=== PATIENT | female | born 1960 | race Caucasian/White ===

== ENCOUNTER 2019-01-01 14:40 | Inpatient (IN) | payer MEDICARE, OTHER ==
[~2019-01-01] VITALS: Ht 170.2 cm; Wt 72.6 kg
--- NOTE | 2019-01-01 14:56 | NUR ---
"BIBPA FROM HOME, FOR MEDICAL CLEARANCE, ON A 5150 HOLD DTS." PT TO BED 14, PT ON MONITOR, VSS, NAD NOTED, PENDING MD VERGARA
[2019-01-01 15:23] LABS: APPEARANCE,URINE Clear (CLEAR); BILIRUBIN,URINE Negative (NEGATIVE); BLOOD, URINE Trace-intact Ery/uL (NEGATIVE); COLOR,URINE Yellow (YELLOW); KETONES,URINE 15 (NEGATIVE); LEUKOCYTE ESTERASE ,URINE Trace (NEGATIVE); NITRITE, URINE Negative (NEGATIVE); PROTEIN,URINE Negative (NEGATIVE); UGLUCOSE Negative (NEGATIVE); UROBILINOGEN,URINE 0.2 EU/dL (0.2)
[2019-01-01 15:23] LABS: BASOPHILS % (AUTO) 0.4 % (0.0-2.0); HEMATOCRIT 41 % (33-45); HEMOGLOBIN 13.8 g/dL (11.5-14.8); LYMPHOCYTES # (AUTO) 1.8 /CMM (0.8-4.8); MEAN CORPUSCULAR HGB CONC 34 g/dl (31.0-36.0); MEAN CORPUSCULAR VOLUME 96 fL (82-100); MONOCYTES # (AUTO) 0.7 /CMM (0.1-1.30); MONOCYTES % (AUTO) 8.9 % (2.0-12.0); NEUTROPHILS # (AUTO) 5.4 /CMM (1.8-8.9); NEUTROPHILS % (AUTO) 66.7 % (43.0-81.0); PLATELET COUNT (AUTO) 300 /CMM (150-450); RED BLOOD CELL COUNT(AUTO) 4.26 MIL/uL (4.0-5.2)
[2019-01-01 15:58] LABS: CALCIUM, SERUM 10.1 mg/dL (8.5-10.1); CARBON DIOXIDE 27 mmol/L (21-32); CHLORIDE 103 mmol/L (98-107); GLUCOSE 113 mg/dL (74-106); POTASSIUM 3.5 mmol/L (3.5-5.1); SODIUM SERUM 139 mmol/L (136-145); UREA NITROGEN, BLOOD 16 mg/dL (7-18)
[2019-01-01] MEDS ORDERED: LURA80TA PO (16:08)
[2019-01-01] MEDS ORDERED: LITH300C2 PO (16:08)
[2019-01-01 16:12] LABS: ALANINE AMINOTRANSFERASE 17 U/L (12-78); ALBUMIN 4.6 g/dL (3.4-5.0); ALKALINE PHOSPHATASE 58 U/L (46-116); ASPARTATE AMINOTRANSFERASE 25 U/L (15-37); BILIRUBIN,DIRECT 0.2 mg/dL (0.0-0.2); BILIRUBIN,TOTAL 0.7 mg/dL (0.2-1.0); TOTAL PROTEIN, SERUM 7.8 g/dL (6.4-8.2)
[2019-01-01 16:14] LABS: ACETAMINOPHEN < 2 ug/ml (10-30); ALCOHOL, BLOOD < 3 mg/dL (0-0); SALICYLATE 0.4 mg/dL (2.8-20.0)
[2019-01-01 16:36] LABS: BACTERIA,URINE Few /HPF (None Seen); SQUAMOUS EPITHELIAL CELL,UR Few /HPF (None Seen)
--- NOTE | 2019-01-01 17:44 | NUR ---
REPORT GIVEN TO SEAN OBRIEN FOR ALEKS.
--- NOTE | 2019-01-01 18:30 | NUR ---
GPS/RN-NOTES PATIENT WAS BROUGHT IN BY ER STAFF IN THE UNIT WITH 5150 HOLD STATUS. PATIENT ALERT ORIENTED X3 AMBULATORY STEADY GAIT. CONTRA BAND DONE. ORIENTED PATIENT IN THE UNIT AND UNIT POLICIES. PATIENT LAYING IN BED AT THIS TIME.ENDORSE TO THE CHARGE NURSE FOR THE ADMISSION PROCESS AND CONTINUITY OF CARE.
--- NOTE | 2019-01-01 18:30 | NUR ---
TRANSFERRED TO ROOM 216B, IN STABLE CONDITION.
--- NOTE | 2019-01-01 19:30 | NUR ---
GPS TEXTILE DYER NOTES ADMITTED A 58YO FEMALE FROM HOME ON 5150 HOLD FOR DANGER TO SELF. PER HOLD, PATIENT IS NOT ADHERENT TO HER MEDICATIONS AFTER RECENT MEDICATION CHANGE, INCREASINGLY PARANOID, BELIEVES PEOPLE ARE COMING TO THEIR HOME TO KILL HER AND HER FAMILY, DEMANDING THEY FLEE THEIR HOME. PATIENT WROTE A SUICIDE NOTE SAYING SHE IS WEAK AND CANNOT LIVE ANY LONGER. PATIENT CAME TO THE UNIT ABOUT 1815. UPON FACE TO FACE ASSESSMENT, PATIENT PRESENTS ALERT AND ORIENTED X3, ADMITS TO FEELING DEPRESSED. PATIENT DENIES ANY SUICIDAL IDEATIONS, THOUGHTS OR PLANS THIS TIME. SHE DENIES AUDITORY AND VISUAL HALLUCINATIONS. PATIENT ORIENTED TO STAFF, UNIT POLICIES, AND CARE PLAN. Q15 MIN CHECKS INITIATED. PATIENT AGREED TO CONTRACT FOR SAFETY. SHE WAS FURTHER ENCOURAGED TO VERBALIZE ANY FEELINGS OR CONCERNS, OR ANY THOUGHTS OF SELF HARM AT ANYTIME. SKIN AND BODY ASSESSMENT DONE- PATIENT'S SKIN IS INTACT, NO ACTIVE WOUNDS NOTED THIS TIME. PATIENTS RIGHTS HANDBOOK PROVIDED. GUIDE TO PRESCRIPTION MEDICATIONS HANDBOOK PROVIDED. DR. MAZA IS THE PSYCH DR FOR THIS PATIENT. WILL MONITOR PATIENT FOR MOOD, SAFETY AND BEHAVIOR.
[2019-01-01] MEDS ORDERED: MAGNESIUM HYDROXIDE 30 ML UDC PO PRN (20:00)
[2019-01-01] MEDS ORDERED: ACETAMINOPHEN 325 MG TABLET PO PRN (20:00)
[2019-01-01] MEDS ORDERED: MAG HYDROX/AL HYDROX/SIMETH 30 ML UDC PO PRN (20:00)
[2019-01-01] MEDS ORDERED: BLOOD SUGAR DIAGNOSTIC 1 EACH STRIP IN ONE (20:00)
[2019-01-01 20:41] VITALS: BP 127/76
--- NOTE | 2019-01-01 20:50 | NUR ---
RN NOTES ISRAEL HERNANDEZ MADE A CALL TO VONDA CARRANZA, BROTHER OF THE PATIENT. NO ANSWER. MESSAGE LEFT ON THE PHONE: [phone]
--- NOTE | 2019-01-01 23:00 | NUR ---
RN NOTES FOUND PATIENT STILL AWAKE, SITTING UP IN BED, TALKING TO SELF. OFFERED SLEEPING TABLET 3X BUT PATIENT REFUSED
--- NOTE | 2019-01-02 00:30 | NUR ---
RN NOTES PATIENT FOUND STILL SITTING UP IN BED, AWAKE. OFFERED PATIENT HER SLEEPING TABLET AGAIN BUT SHE REFUSED
--- NOTE | 2019-01-02 02:00 | NUR ---
RN NOTES PATIENT FOUND STILL AWAKE IN BED. OFFERED PATIENT HER SLEEPING TABLET AGAIN BUT STILL, SHE REFUSED
--- NOTE | 2019-01-02 03:30 | NUR ---
RN NOTES PATIENT CAME OUT FROM THE ROOM ASKING FOR HER CLOTHES THEN STARTED PACING IN THE HALLWAY. EXPLAINED TO HER THAT PATIENTS ARE REQUIRED TO WEAR THE HOSPITAL GOWN WHILE STAYING IN THE HOSPITAL. PATIENT VERBALIZED UNDERSTANDING. WENT BACK TO HER ROOM AND STARTED TALKING TO HERSELF
--- NOTE | 2019-01-02 05:50 | NUR ---
RN NOTES PATIENT CAME OUT FROM THE ROOM WITH ONLY HER UNDERWEAR ON. PATIENT ESCORTED BACK TO THE ROOM, REORIENTED AND INFORMED THAT SHE IS NOT ALLOWED TO WALK NAKED IN THE HALLWAY. PER PATIENT," I DIDN'T KNOW WHAT I WAS THINKING. IT WAS A STUPID THING TO DO."
[2019-01-02 07:46] LABS: ALBUMIN 4.8 g/dL (3.4-5.0); BILIRUBIN,TOTAL 1.1 mg/dL (0.2-1.0); CALCIUM, SERUM 10.4 mg/dL (8.5-10.1); TOTAL PROTEIN, SERUM 8.1 g/dL (6.4-8.2)
[2019-01-02 08:00] VITALS: BP 125/70
[2019-01-02 10:21] LABS: CHOLESTEROL 189 mg/dL (<200); HDL CHOLESTEROL 92 mg/dL (40-60); LDL 76 mg/dL (0-99); TRIGLYCERIDES 70 mg/dL (30-150)
[2019-01-02] MEDS: LITHIUM CARBONATE 150 MG CAPSULE PO SCH (10:52)
[2019-01-02] MEDS: risperiDONE 1 MG TABLET PO SCH ×2 (10:52→16:58)
--- NOTE | 2019-01-02 11:37 | NUR ---
Initial discharge plan: Pt currently resides in her home with her mother located at [address] [place] [address] , [place] [address]; [phone]. Per pt, she would like to return to her home. SW will work with the pt and the MD regarding appropriate discharge planning. SW will form a safe and proper discharge.
--- NOTE | 2019-01-02 15:10 | NUR ---
Group note: Pt attended a group session on 01/02/19 at 2:30PM discussing goal setting for while they are in the hospital and for after being discharged. S: Pt stated, My goal is to get well. I just want to feel better. O: Pt was present during the group session and was engaged. Pt appeared to be in a euthymic mood and flat affect. Pt maintained appropriate eye contact and but had difficulty speaking. A: Pt presented with some insight on her admission. Pt also gained awareness of her situation and capacity to set realistic goals to utilize for to remain compliant with her medication. P: Pt will continue milieu treatment and medication stabilization.
[2019-01-02 16:00] VITALS: BP 140/66
[2019-01-02 20:00] VITALS: BP 132/53
[2019-01-02 20:48] VITALS: BP 132/53
[2019-01-02] MEDS: TEMAZEPAM 7.5 MG CAPSULE PO PRN (21:12)
[2019-01-02] MEDS ORDERED: LITHIUM CARBONATE 150 MG CAPSULE PO SCH (22:00)
[2019-01-03 08:00] VITALS: BP 123/80
[2019-01-03] MEDS: LITHIUM CARBONATE 150 MG CAPSULE PO SCH (08:12)
[2019-01-03] MEDS: risperiDONE 1 MG TABLET PO SCH ×2 (08:12→16:12)
[2019-01-03 16:00] VITALS: BP 117/84
--- NOTE | 2019-01-03 18:28 | NUR ---
GPS/RN ENCOURAGE TO EAT AND DRINK THROUGHOUT THE SHIFT. REFUSED TO EAT TODAY. PT DRUNK ONE ORANGE JUICE BOX WITH RAJESH OBRIEN TODAY.
[2019-01-03 20:15] VITALS: BP 120/56
[2019-01-03] MEDS ORDERED: LITHIUM CARBONATE (300 MG CAP) 300 MG CAPSULE ONE (21:42)
--- NOTE | 2019-01-03 22:00 | NUR ---
GPS RN NOTES: PATIENT REFUSED HER SLEEPING MEDICATION RESTORIL. PER PATIENT SHE DOESN'T NEED IT AT THIS TIME. ENCOURAGED PATIENT TO BE IN BED SO SHE COULD SLEEP. PATIENT JUST LOOKS AT NURSE AT SITS ON THE CHAIR. FAA RN ENCOURAGED PATIENT TO HAVE SOME WATER OR JUICE, PATIENT DRINKS A FEW SIPS OF WATER BUT NOT THE JUICE.
[2019-01-03] MEDS: LITHIUM CARBONATE (300 MG CAP) 300 MG CAPSULE PO SCH (22:24)
[2019-01-04 08:00] VITALS: BP 117/83
[2019-01-04] MEDS: risperiDONE 1 MG TABLET PO SCH ×2 (08:43→17:03)
[2019-01-04] MEDS: LITHIUM CARBONATE 150 MG CAPSULE PO SCH (08:43)
[2019-01-04 15:57] VITALS: BP 136/73
[2019-01-04 19:45] VITALS: BP 115/49
[2019-01-04 22:00] VITALS: BP 129/83
--- NOTE | 2019-01-04 23:30 | NUR ---
RN NOTES Pt FOUND AWAKE SITTING IN CHAIR, UNABLE TO SLEEP. ASKED IF Pt NEEDED A SLEEPING PILL TO HELP HER SLEEP, Pt REFUSED A SLEEPING PILL AT THIS TIME. Pt SAID SHE WILL LAY DOWN IN BED AND GET SOME REST.
[2019-01-05 08:00] VITALS: BP 135/58
[2019-01-05] MEDS: LITHIUM CARBONATE 150 MG CAPSULE PO SCH (08:20)
[2019-01-05] MEDS: risperiDONE 1 MG TABLET PO SCH ×2 (08:21→16:27)
--- NOTE | 2019-01-05 12:07 | NUR ---
UR Note: SHAREE called Lianet ([phone]), from [facility], and left a clinical on her voicemail.
[2019-01-05] MEDS ORDERED: OLANZAPINE 10 MG VIAL IM STA (12:28)
[2019-01-05] MEDS ORDERED: LORAZEPAM INJ 2 MG/ML VIAL IM STA (12:28)
--- NOTE | 2019-01-05 15:21 | NUR ---
GROUP NOTE: SW encouraged pt to participate in group on this present day discussing "discharge planning." S: Pt stated, "I wish to return home and not feel so anxious." O: Pt was present during group and appeared anxious, pt maintained minimal eye contact and appeared with a depressed mood and worried affect. Pt only spoke when prompted to. A: Pt presents with some insight and as she stated she wanted to get better before returning home. Pt is compliant with medications and has awareness of the importance of being medication compliant. P: Pt will continue milieu treatment and medication stabilization.
[2019-01-05 16:00] VITALS: BP 108/64
[2019-01-05 20:03] VITALS: BP 127/69
[2019-01-05] MEDS: LITHIUM CARBONATE (300 MG CAP) 300 MG CAPSULE PO SCH (21:12)
--- NOTE | 2019-01-05 21:15 | NUR ---
GPS NOTES OFFERED PATIENT SOME SNACKS OR SANDWICH DUE TO POOR ORAL INTAKE THROUGHOUT THE DAY, BUT PATIENT REFUSED. OFFERED JUICES WITH MED INTAKE, PATIENT AGREED TO DRINK ORANGE JUICE.
[2019-01-05] MEDS: TEMAZEPAM 7.5 MG CAPSULE PO PRN (22:23)
[2019-01-06 08:00] VITALS: BP 129/79
--- NOTE | 2019-01-06 08:26 | NUR ---
UR Note: SW received a voicemail from Lianet ([phone]), from [facility], as a response to the clinical the SW had left on her voicemail. She stated that she is requesting a lithium level on the pt and then will state whether or not the pt will receive additional authorization.
[2019-01-06] MEDS: LITHIUM CARBONATE 150 MG CAPSULE PO SCH (09:32)
[2019-01-06] MEDS: risperiDONE 1 MG TABLET PO SCH ×2 (09:32→17:04)
--- NOTE | 2019-01-06 14:00 | NUR ---
QUIET ALL DAY,KEEPS TO SELF,PACING THE HALLS.
--- NOTE | 2019-01-06 14:46 | NUR ---
UR Note: SHAREE called Lianet ([phone]), from [facility], and left a voicemail with the pts lithium level of 1.15. SHAREE is waiting to hear back to determine whether the pt will be discharged today or not.
--- NOTE | 2019-01-06 15:05 | NUR ---
GROUP NOTE: SW encouraged pt to participate in group on this present day discussing "appropriate coping skills." Pt was anxious and pacing around in her room with depressed mood. Pt stated that she just wanted to leave and that she only felt safe in her room. SW provided clinical intervention and discussed pts anxiety/depression and healthy coping skills, pt stated that she did not know how to cope with her feelings and SW provided positive reinforcement and highlighted pts strengths, such as verbalization of her feelings.
--- NOTE | 2019-01-06 15:05 | NUR ---
UR Note: SHAREE called Lianet ([phone]), from [facility], who stated that the pt will be authorized from 01/06-01/07 with a review due on 01/07/19.
--- NOTE | 2019-01-06 15:10 | NUR ---
Family Contact: SHAREE called the pts brother, Hugo ([phone]), and informed him that the pt is authorized to be in the hospital up until 01/07 as of right now and has a tentative discharge date for 01/08/19.
[2019-01-06 16:00] VITALS: BP 122/97
[2019-01-06 20:17] VITALS: BP 149/90
[2019-01-06] MEDS: LITHIUM CARBONATE (300 MG CAP) 300 MG CAPSULE PO SCH (21:25)
--- NOTE | 2019-01-07 01:23 | NUR ---
PT OFFERED SLEEPING MEDS THREE TIMES BUT REFUSED. LAST SLEEPING PILL OFFERED TO PT AT 2AM.
[2019-01-07 07:00] LABS: BASOPHILS % (AUTO) 0.5 % (0.0-2.0); EOSINOPHILS % (AUTO) 2.5 % (0.0-6.0); HEMATOCRIT 39 % (33-45); LYMPHOCYTES # (AUTO) 1.5 /CMM (0.8-4.8); LYMPHOCYTES % (AUTO) 27.5 % (20.0-44.0); MEAN CORPUSCULAR HGB CONC 34 g/dl (31.0-36.0); MEAN CORPUSCULAR VOLUME 95 fL (82-100); MONOCYTES # (AUTO) 0.5 /CMM (0.1-1.30); MONOCYTES % (AUTO) 9.5 % (2.0-12.0); NEUTROPHILS # (AUTO) 3.4 /CMM (1.8-8.9); PLATELET COUNT (AUTO) 255 /CMM (150-450); RED BLOOD CELL COUNT(AUTO) 4.07 MIL/uL (4.0-5.2); WHITE BLOOD COUNT (AUTO) 5.6 K/uL (4.3-11.0)
[2019-01-07 07:23] LABS: CALCIUM, SERUM 10.2 mg/dL (8.5-10.1); CREATININE 0.8 mg/dL (0.6-1.3); MAGNESIUM 2.3 mg/dL (1.8-2.4); PHOSPHORUS 2.9 mg/dL (2.5-4.9); POTASSIUM 3.5 mmol/L (3.5-5.1)
[2019-01-07 08:00] VITALS: BP 136/88
[2019-01-07] MEDS: risperiDONE 1 MG TABLET PO SCH ×2 (08:18→17:18)
[2019-01-07] MEDS: LITHIUM CARBONATE 150 MG CAPSULE PO SCH (08:18)
[2019-01-07] MEDS ORDERED: ENSURE ENLIVE 237 ML LIQUID (VANILLA) PO SCH (11:30)
[2019-01-07] MEDS: ENSURE ENLIVE 237 ML LIQUID (VANILLA) PO SCH ×2 (12:11→17:20)
--- NOTE | 2019-01-07 15:00 | NUR ---
Family Contact: SW called the pts brother, Hugo ([phone]), and left a voicemail that stated that the pt will be discharged tomorrow and would like a call back regarding what time she will be picked up.
--- NOTE | 2019-01-07 15:01 | NUR ---
UR Note: SHAREE called Lianet ([phone]), from [facility], and informed her that the pt will be discharged tomorrow.
--- NOTE | 2019-01-07 15:23 | NUR ---
Group note: Pt attended a group session on 01/07/19 at 2:00PM discussing discharge planning. S: Pt stated, I am going to go back home tomorrow with my brother and I know that I have to keep taking my medications. I know that my SW stated that I have to follow up with my psychiatrist and medical doctors as well. O: Pt was present during the group session and was engaged. Pt appeared to be in a euthymic mood and flat affect. Pt maintained appropriate eye contact. A: Pt also gained awareness of her situation and capacity to set realistic goals to utilize for to remain compliant with her medication. P: Pt will continue milieu treatment and medication stabilization.
[2019-01-07 16:00] VITALS: BP 103/75
[2019-01-07 20:00] VITALS: BP 119/81
[2019-01-07 20:10] VITALS: BP 119/81
[2019-01-07] MEDS: LITHIUM CARBONATE (300 MG CAP) 300 MG CAPSULE PO SCH (21:21)
[2019-01-08 08:00] VITALS: BP 95/62
[2019-01-08] MEDS: risperiDONE 1 MG TABLET PO SCH (09:11)
[2019-01-08] MEDS: ENSURE ENLIVE 237 ML LIQUID (VANILLA) PO SCH ×2 (09:11→12:29)
[2019-01-08] MEDS: LITHIUM CARBONATE 150 MG CAPSULE PO SCH (09:11)
--- NOTE | 2019-01-08 09:16 | NUR ---
DR. MAZA GAVE AND ORDER TO D/C HOLD AND D/C HOME AND TO FOLLOW UP WITH PSYCH AND MEDICAL DOCTORS.
--- NOTE | 2019-01-08 09:41 | NUR ---
UR Note: SW received a voicemail from Lianet ([phone]), from [facility], stating that yesterday was the last covered day for the pt and that her authorization number is [id number].
--- NOTE | 2019-01-08 09:51 | NUR ---
UR Note: SHAREE called Lianet ([phone]), from [facility], and left a voicemail stating that the pt is going to be discharged today.
--- NOTE | 2019-01-08 14:32 | NUR ---
Family Contact: SW called the pts brother, Hugo ([phone]), and he stated that he will come picking machine operator helper the pt around 4pm.
--- NOTE | 2019-01-08 15:15 | NUR ---
Group Note: SW encouraged pt to participate in group on 01/08/19 at 2pm discussing "social supports." Pt stated that she does not want to participate because she was feeling anxious about her discharge and stated that her brother will be picking her up.
--- NOTE | 2019-01-08 15:23 | NUR ---
Discharge Note: Pt was discharged home to [id number] [place] [address] , [place] [address]; ([phone]). Pts brother, Hugo ([phone]), picked the pt up around 4pm. Upon discharge, the pt appeared to be in a dysphoric mood and presented with an anxious affect. Pt denied both suicidal and homicidal ideation as well as auditory and visual hallucinations. Pt will be under the care of her psychiatrist, Dr. Leos ([facility]), [place] [address] [place] [address]; ; and a fax of records was sent to: [phone]. Pt has an appointment on 01/14/19 at 10AM. Pt will be under the care of his die tripper, Dr. Degroot, located at [id number] [place] [address] [address], [place] [address]; .
--- NOTE | 2019-01-08 16:25 | NUR ---
GPS/RN-NOTES PATIENT DISCHARGE TO HOME WITH HER BROTHER TODAY. AND DR. PERALES AWARE AND AGREED OF PATIENT DISCHARGE WITH ORDERS. PATIENT DID NOT VERBALIZE SI/HI,DENIES VISUAL/AUDITORY HALLUCINATIONS AT THE TIME OF DISCHARGE.ALL DISCHARGE MEDICATIONS WAS REVIEWED WITH THE PATIENT WITH UNDERSTANDING RX WAS GIVEN TO HER AND WAS ENDORSED TO HER BROTHER VONDA,ALL DISCHARGED PAPERS WAS SIGN BY THE PATIENT . INSTRUCTED PATIENT TO FOLLOW UP WITH PRIMARY PHYSICIAN IN A WEEK OR CALL 911 OR GO TO THE NEAREST EMERGENCY ROOM IN CASE OF EMERGENCIES.PATIENT LEFT THE UNIT IN STABLE CONDITION ALERT ORIENTED X3 AMBULATORY WITH STEADY GAIT. DECK SPECIALIST WAS ASSISTED PATIENT IN THE LOBBY FOR SAFETY. DECORATING INSTRUCTOR BY BROTHER VONDA CARRANZA VIA PRIVATE CAR.
== END 2019-01-08 16:25 | disposition home or self-care (01) | DRG 885 ==
LOC: ER 14:44 → GPS 17:44
PROVIDERS: ADMIT Psychiatry & Neurology Psychiatry; ATTEND Hospitalist
DX: F25.9 Schizoaffective disorder, unspecified (principal); R45.851 Suicidal ideations; F29 Unspecified psychosis not due to a substance or known physiological condition; F41.9 Anxiety disorder, unspecified; Z73.6 Limitation of activities due to disability
CPT/HCPCS: 36415; 80048-TC; 80053-TC; 80061-TC; 80076-TC; 80305; 81000-TC; 82962-TC; 83735-TC; 84100-TC; 84703-TC; 85025-TC; 87081-TC; G0480

== ENCOUNTER 2019-01-12 16:07 | Inpatient (IN) | payer OTHER ==
[~2019-01-12] VITALS: Ht 167.6 cm; Wt 56.7 kg
--- NOTE | 2019-01-12 16:19 | NUR ---
LOI from home, per EMS brother said, she was released too soon from mental health. On room air, breathing evenly and unlabored. connected to the monitor and pulse ox. Will continue to monitor accordingly.
--- NOTE | 2019-01-12 16:21 | NUR ---
urine collected and sent to lab.
[2019-01-12 16:31] LABS: APPEARANCE,URINE Slightly Cloudy (CLEAR); BILIRUBIN,URINE MODERATE (NEGATIVE); BLOOD, URINE Small Ery/uL (NEGATIVE); COLOR,URINE Dark (YELLOW); KETONES,URINE Trace (NEGATIVE); LEUKOCYTE ESTERASE ,URINE Negative (NEGATIVE); NITRITE, URINE Negative (NEGATIVE); PH,URINE 6.5 (5.0-8.0); PROTEIN,URINE 30 mg/dl (NEGATIVE); UGLUCOSE Negative (NEGATIVE)
[2019-01-12 16:38] LABS: BASOPHILS % (AUTO) 0.1 % (0.0-2.0); HEMATOCRIT 39 % (33-45); HEMOGLOBIN 12.9 g/dL (11.5-14.8); LYMPHOCYTES # (AUTO) 0.4 /CMM (0.8-4.8); LYMPHOCYTES % (AUTO) 3.2 % (20.0-44.0); MEAN CORPUSCULAR HGB CONC 34 g/dl (31.0-36.0); MEAN CORPUSCULAR VOLUME 96 fL (82-100); MONOCYTES # (AUTO) 1.1 /CMM (0.1-1.30); MONOCYTES % (AUTO) 8.1 % (2.0-12.0); NEUTROPHILS % (AUTO) 88.6 % (43.0-81.0); PLATELET COUNT (AUTO) 278 /CMM (150-450); RED BLOOD CELL COUNT(AUTO) 4.03 MIL/uL (4.0-5.2); WHITE BLOOD COUNT (AUTO) 13.6 K/uL (4.3-11.0)
[2019-01-12 17:01] LABS: SQUAMOUS EPITHELIAL CELL,UR Moderate /HPF (None Seen)
[2019-01-12 17:02] LABS: BACTERIA,URINE Moderate /HPF (None Seen)
[2019-01-12 17:03] LABS: WBC,URINE 0-2 /HPF (0-3); YEAST,URINE Rare /HPF (None Seen)
[2019-01-12 17:12] LABS: ACETAMINOPHEN 0 ug/ml (10-30); ALANINE AMINOTRANSFERASE 51 U/L (12-78); ALBUMIN 4.1 g/dL (3.4-5.0); ALCOHOL, BLOOD < 3 mg/dL (0-0); ALKALINE PHOSPHATASE 64 U/L (46-116); ASPARTATE AMINOTRANSFERASE 96 U/L (15-37); BILIRUBIN,DIRECT 0.2 mg/dL (0.0-0.2); BILIRUBIN,TOTAL 0.8 mg/dL (0.2-1.0); CALCIUM, SERUM 10.4 mg/dL (8.5-10.1); CARBON DIOXIDE 26 mmol/L (21-32); CHLORIDE 103 mmol/L (98-107); CREATININE 1.1 mg/dL (0.6-1.3); GLUCOSE 113 mg/dL (74-106); POTASSIUM 3.8 mmol/L (3.5-5.1); SALICYLATE 0.5 mg/dL (2.8-20.0); SODIUM SERUM 137 mmol/L (136-145); UREA NITROGEN, BLOOD 30 mg/dL (7-18)
--- NOTE | 2019-01-12 17:21 | NUR ---
CALLED SUSU BEAVER 1HR.
[2019-01-12] MEDS ORDERED: IV NS 0.9% 1,000 ML BAG IV ONE (18:00)
--- NOTE | 2019-01-12 18:19 | NUR ---
pinky BACKBREAKER at bedside for eval.
[2019-01-12] MEDS ORDERED: RISP0.253 PO (19:05)
[2019-01-12] MEDS ORDERED: LITH300T PO (19:05)
[2019-01-12] MEDS ORDERED: LITH600C PO (19:05)
--- NOTE | 2019-01-12 20:37 | NUR ---
REPORT GIVEN TO MARY OBRIEN FOR ALEKS
[2019-01-12 21:00] VITALS: BP 138/76
[2019-01-12] MEDS ORDERED: MAGNESIUM HYDROXIDE 30 ML UDC PO PRN (21:30)
[2019-01-12] MEDS ORDERED: ACETAMINOPHEN 325 MG TABLET PO PRN (21:30)
[2019-01-12] MEDS ORDERED: BLOOD SUGAR DIAGNOSTIC 1 EACH STRIP IN ONE (21:30)
[2019-01-12] MEDS ORDERED: MAG HYDROX/AL HYDROX/SIMETH 30 ML UDC PO PRN (21:30)
[2019-01-12] MEDS ORDERED: LURA40TA PO (23:18)
--- NOTE | 2019-01-13 02:48 | NUR ---
GPS RN NOTES Admitted directly a 58 yo female from home via gurney on 5150 Hold for DTS/GD. Per Hold Pt is brought in from home d/t increased bizarre and erratic behavior. Per Pt brother, Pt has been deteriorating over the past 4 days and have not been eating or drinking. Pt spends all day bending over in the living room and sleeps a few hours at night, staring at the window for hours. Upon face to face assessment Pt presents as alert and oriented x2, disheveled, depressed, anxious, and disoriented. Pt talks minimally and shows disinterest at staff, and refused to sign admission papers due to confusion. Pt belongings and contraband were checked and placed in locked cabinet. Pt advised of her Hold. Pt rights discussed and Pt handbook provided. Guide to prescription medications given. Pt will be under the care of Dr Parra Psychiatrist, and Dr Holland Internal Medicine. Pt oriented to unit, staff, care plan and unit policies. At 2109 Dr Narayanan Internal Medicine was notified of Pt admission and medication reconciliation done at 2119. Q 15 minutes check initiated. Care plan started. Accu check done/ BS 88. Denies SI, HI at this time. No signs and symptoms of distress at this time. Pt lying in bed, bed in low and locked position. Call morillo within reach, 2 side rails up for fall prevention, bed alarms on. Will continue to monitor Pt for mood, safety and behavior. Will endorse Pt to oncoming day shift nurse.
[2019-01-13 07:04] LABS: BASOPHILS % (AUTO) 0.2 % (0.0-2.0); EOSINOPHILS % (AUTO) 0.6 % (0.0-6.0); HEMATOCRIT 38 % (33-45); HEMOGLOBIN 12.7 g/dL (11.5-14.8); LYMPHOCYTES # (AUTO) 1.2 /CMM (0.8-4.8); MEAN CORPUSCULAR HGB CONC 34 g/dl (31.0-36.0); MEAN CORPUSCULAR VOLUME 95 fL (82-100); MONOCYTES # (AUTO) 1.2 /CMM (0.1-1.30); MONOCYTES % (AUTO) 12.4 % (2.0-12.0); NEUTROPHILS # (AUTO) 7.5 /CMM (1.8-8.9); NEUTROPHILS % (AUTO) 74.8 % (43.0-81.0); PLATELET COUNT (AUTO) 250 /CMM (150-450); RED BLOOD CELL COUNT(AUTO) 3.96 MIL/uL (4.0-5.2)
[2019-01-13 07:29] LABS: ALBUMIN 3.3 g/dL (3.4-5.0); BILIRUBIN,TOTAL 0.7 mg/dL (0.2-1.0); CALCIUM, SERUM 10.1 mg/dL (8.5-10.1); CREATININE 0.9 mg/dL (0.6-1.3); MAGNESIUM 2.6 mg/dL (1.8-2.4); PHOSPHORUS 3.2 mg/dL (2.5-4.9); POTASSIUM 3.6 mmol/L (3.5-5.1); TOTAL PROTEIN, SERUM 6.2 g/dL (6.4-8.2)
[2019-01-13 07:30] LABS: THYROID STIMULATING HORMONE 3.716 uIU/mL (0.358-3.74)
[2019-01-13 07:54] LABS: CHOLESTEROL 137 mg/dL (<200); HDL CHOLESTEROL 62 mg/dL (40-60); LDL 57 mg/dL (0-99); TRIGLYCERIDES 74 mg/dL (30-150)
[2019-01-13 08:00] VITALS: BP 108/67
[2019-01-13] MEDS ORDERED: FLUCONAZOLE (100 MG) 100 MG TABLET PO ONE (09:00)
--- NOTE | 2019-01-13 10:39 | NUR ---
UR Note: Lul Jorge Luis ([phone]), Cutting Machine Fixer, called the SW and stated that a review will be due 01/16/19. software quality manager is requesting a lithium level at this time. Addendum: 01/13/19 at 1042 by VAMSHI TOLLIVER SHAREE conducted a live clinical review at this time.
[2019-01-13] MEDS: risperiDONE 1 MG TABLET PO SCH ×2 (10:52→17:13)
[2019-01-13] MEDS: LITHIUM CARBONATE (300 MG CAP) 300 MG CAPSULE PO SCH ×2 (10:52→21:49)
--- NOTE | 2019-01-13 11:20 | NUR ---
Family Contact: SW called pts brotherHugo ([phone]), and left a voicemail stating that the SW would like to discuss the discharge plan.
--- NOTE | 2019-01-13 11:46 | NUR ---
Initial Discharge Plan: Pt currently resides at home with her brother and mother located at [address] [place] [address]; ([phone]). Per pt, she would like to return to her home. SW will work with the pt and the MD regarding appropriate discharge planning. SW will form a safe and proper plan.
--- NOTE | 2019-01-13 15:55 | NUR ---
GROUP NOTE: SW encouraged pt to participate in group on this present day discussing "impaired reality-testing" Pt unable to participate due to confusion, bizarre unrealistic statements, isolative with depressed mood. SW attempted to provide intervention but pt did not engage in conversation.
[2019-01-13 16:00] VITALS: BP 128/61
[2019-01-13 20:00] VITALS: BP 147/55
[2019-01-13 20:37] VITALS: BP 147/55
[2019-01-14 08:00] VITALS: BP 130/69
[2019-01-14] MEDS: LITHIUM CARBONATE (300 MG CAP) 300 MG CAPSULE PO SCH ×2 (08:09→22:20)
[2019-01-14] MEDS: risperiDONE 1 MG TABLET PO SCH ×2 (08:09→16:02)
[2019-01-14] MEDS: ENSURE ENLIVE 237 ML LIQUID (VANILLA) PO SCH ×3 (08:10→16:02)
--- NOTE | 2019-01-14 14:50 | NUR ---
Group Note: SW encouraged pt to participate in group on 01/14/19 at 2pm discussing social supports. Pt stated that she lives with her mother and brother and they help her when she is at home. Pt stated that she was feeling depressed and wanted to remain in her room staring at the fritz.
--- NOTE | 2019-01-14 15:28 | NUR ---
Family Contact: SHAREE called pts brother, Hugo ([phone]), and informed him of the pts treatment plan and initial discharge plan. He stated that he believes that the pt needs to be hospitalized longer than just a few days and agreed that the pt could benefit from psychotherapy.
[2019-01-14 16:00] VITALS: BP 112/77
[2019-01-14 20:18] VITALS: BP 127/69
[2019-01-15 08:00] VITALS: BP 118/59
[2019-01-15] MEDS: LITHIUM CARBONATE (300 MG CAP) 300 MG CAPSULE PO SCH ×2 (08:06→21:46)
[2019-01-15] MEDS: risperiDONE 1 MG TABLET PO SCH ×2 (08:06→16:53)
[2019-01-15] MEDS: ENSURE ENLIVE 237 ML LIQUID (VANILLA) PO SCH ×3 (08:06→16:53)
[2019-01-15 16:00] VITALS: BP 124/94
[2019-01-15 20:00] VITALS: BP 119/84
[2019-01-16] MEDS: ENSURE ENLIVE 237 ML LIQUID (VANILLA) PO SCH ×3 (08:13→17:12)
[2019-01-16] MEDS: risperiDONE 1 MG TABLET PO SCH ×2 (08:14→17:00)
[2019-01-16] MEDS: LITHIUM CARBONATE (300 MG CAP) 300 MG CAPSULE PO SCH (08:14)
--- NOTE | 2019-01-16 11:16 | NUR ---
UR Note: SHAREE called Lianet ([phone]), vocational case manager with [employer], and conducted a clinical on her voicemail requesting additional days of authorization.
--- NOTE | 2019-01-16 13:26 | NUR ---
UR Note: Lianet ([phone]), protective services case worker with [employer], called the SW and requested more information for the clinical. She stated that she will call the SW back once she meets with her doctor and they make a decision regarding authorization.
--- NOTE | 2019-01-16 15:07 | NUR ---
RN NOTE- CRITICAL LITHIUM LEVEL 2.26. DR HSU INFORMED. STAT LITHIUM LEVEL RECHECK ORDERED. LAB NOTIFIED. DR SALINAS NOTIFIED AT [facility]. NO NEW ORDERS AT PRESENT. AWAITING RECHECK OF LITHIUM LEVEL. PT SLIGHTLY SOMNOLENT, AMBULATORY AND DENIES N&V. CONTINUING TO MONITOR.
--- NOTE | 2019-01-16 15:50 | NUR ---
UR Note: Lianet ([phone]), wrapper caser with [employer], called the SW and stated that the pt received authorization over the weekend. She stated that the pt will require a clinical on Saturday.
[2019-01-16 16:00] VITALS: BP 112/73
--- NOTE | 2019-01-16 17:31 | NUR ---
MICAH NOTE- RECHECK LITHIUM LEVEL 1.7. DR HSU NOTIFIED. ORDERS - HOLD LITHIUM TONIGHT AND TOMORROW. RECHECK LITHIUM LEVEL 6 AM TOMORROW JANUARY 17. MONITOR PT. NOTIFY DR SALINAS [facility]. Addendum: 01/16/19 at 1804 by [address]NE OLMOS RN [address] SALINAS NOTIFIED OF RECHECK LEVEL LITHIUM. NO NEW ORDERS. MONITOR PT AND COMPLY W DR HSU ORDERS. Addendum: 01/16/19 at 1843 by CAROLYNE OLMOS RN MICAH RICHARD- AMADOR SALINAS VISITED PT. NEW ORDERS GIVEN
[2019-01-16 19:28] LABS: BASOPHILS % (AUTO) 0.2 % (0.0-2.0); EOSINOPHILS % (AUTO) 0.1 % (0.0-6.0); HEMATOCRIT 43 % (33-45); HEMOGLOBIN 14.1 g/dL (11.5-14.8); LYMPHOCYTES # (AUTO) 1.4 /CMM (0.8-4.8); LYMPHOCYTES % (AUTO) 8.5 % (20.0-44.0); MEAN CORPUSCULAR HGB CONC 33 g/dl (31.0-36.0); MEAN CORPUSCULAR VOLUME 97 fL (82-100); MONOCYTES # (AUTO) 1.6 /CMM (0.1-1.30); MONOCYTES % (AUTO) 9.8 % (2.0-12.0); NEUTROPHILS % (AUTO) 81.4 % (43.0-81.0); PLATELET COUNT (AUTO) 362 /CMM (150-450); RED BLOOD CELL COUNT(AUTO) 4.44 MIL/uL (4.0-5.2)
[2019-01-16 19:53] LABS: CALCIUM, SERUM 10.9 mg/dL (8.5-10.1); CARBON DIOXIDE 25 mmol/L (21-32); CHLORIDE 111 mmol/L (98-107); CREATININE 1.3 mg/dL (0.6-1.3); GLUCOSE 117 mg/dL (74-106); POTASSIUM 4.2 mmol/L (3.5-5.1); SODIUM SERUM 147 mmol/L (136-145); UREA NITROGEN, BLOOD 29 mg/dL (7-18)
[2019-01-16 19:55] LABS: ACETAMINOPHEN < 10 ug/ml (10-30); SALICYLATE 0.8 mg/dL (2.8-20.0)
[2019-01-16 20:00] VITALS: BP 120/80
[2019-01-16 20:28] VITALS: BP 120/80
[2019-01-16] MEDS: BLOOD SUGAR DIAGNOSTIC 1 EACH STRIP IN SCH (21:06)
[2019-01-16] MEDS: TEMAZEPAM 7.5 MG CAPSULE PO PRN (21:07)
[2019-01-17] MEDS: BLOOD SUGAR DIAGNOSTIC 1 EACH STRIP IN SCH (07:36)
[2019-01-17 08:00] VITALS: BP 119/56
[2019-01-17] MEDS: risperiDONE 1 MG TABLET PO SCH ×2 (08:25→16:34)
[2019-01-17] MEDS: ENSURE ENLIVE 237 ML LIQUID (VANILLA) PO SCH ×3 (08:25→16:33)
[2019-01-17] MEDS ORDERED: IV NS 0.9% 1,000 ML IV STA (10:11)
--- NOTE | 2019-01-17 10:28 | NUR ---
AMADOR SALINAS ORDERED LEYDA DURAN AT THIS TIME
--- NOTE | 2019-01-17 10:57 | NUR ---
RN NOTE- IV STARTED PER ORDERS. 24 G LT HAND, ONE ATTEMPT. IV BOLUS NS 1000ML . TOLERATING WELL. RN MONITORING PT AT BEDSIDE THROUGH INFUSION. Addendum: 01/17/19 at 1246 by CAROLYNE OLMOS RN 950 ML IV BOLUS NS INFUSED. 24 G D/C AT THIS TIME. TOLERATED WELL.
[2019-01-17 16:00] VITALS: BP 121/97
[2019-01-17 17:07] LABS: APPEARANCE,URINE CLEAR (CLEAR); BILIRUBIN,URINE NEGATIVE (NEGATIVE); BLOOD, URINE NEGATIVE Ery/uL (NEGATIVE); COLOR,URINE YELLOW (YELLOW); KETONES,URINE NEGATIVE (NEGATIVE); LEUKOCYTE ESTERASE ,URINE SMALL (NEGATIVE); NITRITE, URINE NEGATIVE (NEGATIVE); PH,URINE 6.5 (5.0-8.0); PROTEIN,URINE NEGATIVE (NEGATIVE); UGLUCOSE NEGATIVE (NEGATIVE); UROBILINOGEN,URINE 0.2 EU/dL (0.2)
[2019-01-17 20:26] VITALS: BP 128/63
[2019-01-18] MEDS: TEMAZEPAM 7.5 MG CAPSULE PO PRN (00:32)
[2019-01-18 06:53] LABS: BASOPHILS % (AUTO) 0.4 % (0.0-2.0); EOSINOPHILS % (AUTO) 0.8 % (0.0-6.0); HEMATOCRIT 40 % (33-45); HEMOGLOBIN 13.4 g/dL (11.5-14.8); LYMPHOCYTES # (AUTO) 1.9 /CMM (0.8-4.8); LYMPHOCYTES % (AUTO) 20.6 % (20.0-44.0); MEAN CORPUSCULAR HGB CONC 33 g/dl (31.0-36.0); MEAN CORPUSCULAR VOLUME 96 fL (82-100); MONOCYTES # (AUTO) 0.9 /CMM (0.1-1.30); MONOCYTES % (AUTO) 10.1 % (2.0-12.0); NEUTROPHILS # (AUTO) 6.2 /CMM (1.8-8.9); NEUTROPHILS % (AUTO) 68.1 % (43.0-81.0); PLATELET COUNT (AUTO) 322 /CMM (150-450); RED BLOOD CELL COUNT(AUTO) 4.18 MIL/uL (4.0-5.2); WHITE BLOOD COUNT (AUTO) 9.1 K/uL (4.3-11.0)
[2019-01-18 07:31] LABS: CALCIUM, SERUM 10.6 mg/dL (8.5-10.1); MAGNESIUM 2.8 mg/dL (1.8-2.4); POTASSIUM 3.8 mmol/L (3.5-5.1)
[2019-01-18] MEDS: risperiDONE 1 MG TABLET PO SCH ×2 (08:11→16:39)
[2019-01-18] MEDS: ENSURE ENLIVE 237 ML LIQUID (VANILLA) PO SCH ×3 (08:11→16:38)
[2019-01-18] MEDS: CEPHALEXIN MONOHYDRATE 500 MG CAPSULE PO SCH ×2 (08:13→16:38)
[2019-01-18 09:26] VITALS: BP 109/62
[2019-01-18] MEDS: LORAZEPAM 0.5 MG TABLET PO PRN (09:52)
[2019-01-18 16:00] VITALS: BP 114/65
[2019-01-18 20:05] VITALS: BP 116/61
[2019-01-19 07:25] LABS: POTASSIUM 3.8 mmol/L (3.5-5.1)
[2019-01-19 08:00] VITALS: BP 117/68
[2019-01-19] MEDS: CEPHALEXIN MONOHYDRATE 500 MG CAPSULE PO SCH ×2 (08:04→16:58)
[2019-01-19] MEDS: ENSURE ENLIVE 237 ML LIQUID (VANILLA) PO SCH ×3 (08:04→16:59)
[2019-01-19] MEDS: risperiDONE 1 MG TABLET PO SCH ×2 (08:34→16:58)
--- NOTE | 2019-01-19 08:37 | NUR ---
RN NOTE- LAB NOTIFIED THAT PTS NA [address] MENDOZA NOTIFIED. ORDERED ONE LITRE D5W AT 100 ML/ HR. X ONE BAG.
[2019-01-19] MEDS ORDERED: IV D5W 1,000 ML IV ONE ×2 (09:30→10:30)
--- NOTE | 2019-01-19 09:40 | NUR ---
RN NOTE- IV STARTED LEFT HAND. TOLERATED WELL. 1000ML D5W INITIATED INFUSION AT THIS TIME. MONITORING 1:1
--- NOTE | 2019-01-19 10:20 | NUR ---
RN NOTE- CALLED DR. MENDOZA REGARDING IV RATE. REQUESTED INCREASE. IV D5W AT 200ML/HOUR. CHANGED RATE. MONITORING PT 1:1
--- NOTE | 2019-01-19 10:57 | NUR ---
RN NOTE- PT BEGAN PACING IN ROOM, ANXIOUS. PRN ATIVAN GIVEN
[2019-01-19] MEDS: LORAZEPAM 0.5 MG TABLET PO PRN (10:58)
--- NOTE | 2019-01-19 11:02 | NUR ---
RN NOTE- VS- B/P 116/63, HR- 107, RR- 18. MONITORING 1:1
--- NOTE | 2019-01-19 13:24 | NUR ---
UR Note: SHAREE called Lianet ([phone]), lead case manager with [employer], and conducted a clinical on her voicemail requesting additional days of authorization.
--- NOTE | 2019-01-19 14:27 | NUR ---
RN NOTE- IV FLUIDS D5W INFUSED. TOLERATED WELL. VSS. PERIPHERAL IV SITE DC. 975 ML INFUSED.
[2019-01-19 16:00] VITALS: BP 125/65
[2019-01-19 19:54] VITALS: BP 106/66
[2019-01-20 08:00] VITALS: BP 120/62
[2019-01-20] MEDS: CEPHALEXIN MONOHYDRATE 500 MG CAPSULE PO SCH ×2 (08:24→17:22)
[2019-01-20] MEDS: ENSURE ENLIVE 237 ML LIQUID (VANILLA) PO SCH ×3 (08:24→17:22)
[2019-01-20] MEDS: risperiDONE 1 MG TABLET PO SCH ×2 (08:24→17:22)
--- NOTE | 2019-01-20 11:01 | NUR ---
UR Note: Lianet ([phone]), family preservation caseworker with [employer], called the SW and requested additional information regarding authorization. finance manager is also requesting a lithium level. finance manager stated that she will speak to her mapping supervisor and call the SW back regarding authorization.
[2019-01-20 12:17] LABS: BASOPHILS % (AUTO) 0.2 % (0.0-2.0); EOSINOPHILS % (AUTO) 0.6 % (0.0-6.0); HEMATOCRIT 42 % (33-45); HEMOGLOBIN 13.7 g/dL (11.5-14.8); LYMPHOCYTES # (AUTO) 1.7 /CMM (0.8-4.8); LYMPHOCYTES % (AUTO) 19.5 % (20.0-44.0); MEAN CORPUSCULAR HGB CONC 33 g/dl (31.0-36.0); MEAN CORPUSCULAR VOLUME 96 fL (82-100); MONOCYTES # (AUTO) 0.8 /CMM (0.1-1.30); MONOCYTES % (AUTO) 8.8 % (2.0-12.0); NEUTROPHILS # (AUTO) 6.3 /CMM (1.8-8.9); NEUTROPHILS % (AUTO) 70.9 % (43.0-81.0); PLATELET COUNT (AUTO) 343 /CMM (150-450); RED BLOOD CELL COUNT(AUTO) 4.34 MIL/uL (4.0-5.2); WHITE BLOOD COUNT (AUTO) 8.9 K/uL (4.3-11.0)
[2019-01-20 12:37] LABS: CALCIUM, SERUM 9.9 mg/dL (8.5-10.1); CREATININE 1.1 mg/dL (0.6-1.3); MAGNESIUM 2.5 mg/dL (1.8-2.4); POTASSIUM 3.9 mmol/L (3.5-5.1)
[2019-01-20 13:14] LABS: THYROID STIMULATING HORMONE 2.219 uIU/mL (0.358-3.74); URIC ACID 7.6 mg/dL (2.6-7.2)
--- NOTE | 2019-01-20 15:15 | NUR ---
Family Contact: SW called pts brotherHugo ([phone]), and informed him that the pt does not have any more authorization for inpatient stay and will be discharged home tomorrow. Pts brother stated that the pt is not ready and asked the SW to ask the insurance for more authorization and to speak to the MD. SW stated that she will consult with them and call him back with an update.
[2019-01-20 15:58] VITALS: BP 100/77
[2019-01-20 17:13] LABS: ALBUMIN 3.9 g/dL (3.4-5.0); BILIRUBIN,DIRECT 0.1 mg/dL (0.0-0.2); BILIRUBIN,TOTAL 0.6 mg/dL (0.2-1.0); TOTAL PROTEIN, SERUM 7.1 g/dL (6.4-8.2)
[2019-01-20 20:13] VITALS: BP 100/58
[2019-01-20] MEDS: TEMAZEPAM 7.5 MG CAPSULE PO PRN (21:39)
--- NOTE | 2019-01-21 08:25 | NUR ---
Family Contact: SHAREE called pts brotherHugo ([phone]), and left a voicemail message stating that the pts insurance company will not be authorizing any more time and that the pt will need to be discharged today.
[2019-01-21] MEDS: ENSURE ENLIVE 237 ML LIQUID (VANILLA) PO SCH ×2 (08:27→12:40)
[2019-01-21] MEDS: CEPHALEXIN MONOHYDRATE 500 MG CAPSULE PO SCH (08:27)
[2019-01-21] MEDS: risperiDONE 1 MG TABLET PO SCH (08:27)
--- NOTE | 2019-01-21 08:30 | NUR ---
UR Note: SW called Lianet ([phone]), business case analyst with [employer], and left her a voicemail stating that the pt is going to be discharged today and therefore a peer to peer review was not scheduled.
--- NOTE | 2019-01-21 09:29 | NUR ---
Family Contact: SW called the pts brotherHugo ([phone]), and left a voicemail stating that the pt needs to be picked up today due to insurance not authorizing additional inpatient stay. SHAREE stated that if the pt does not get picked up the family would get billed for the stay and also stated that it would be considered abandonment. SHAREE stated that she will refer the pt to a home health company as well for additional assistance and would like a call back.
[2019-01-21 09:44] VITALS: BP 100/56
[2019-01-21] MEDS ORDERED: CEPH500C2 PO (10:00)
--- NOTE | 2019-01-21 11:25 | NUR ---
Family Contact: SW called the pts brother, Hugo ([phone]), and left a voicemail stating that the pt has to be discharged back home today and that the SW would like to discuss the plan. SHAREE stated that she will refer the pt to a psychotherapist and home health.
--- NOTE | 2019-01-21 12:24 | NUR ---
UR Note: SHAREE called Lianet ([phone]), business case analyst with [employer], and left her a voicemail stating that the pts family is not cooperating with the discharge and that the MD does not want to conduct a peer to peer.
--- NOTE | 2019-01-21 14:00 | NUR ---
Family Contact: SW called the pts brother, Hugo ([phone]), who stated that he wanted a follow up appointment for the pt and stated that he will come pick her up around 4pm.
--- NOTE | 2019-01-21 14:13 | NUR ---
Discharge Note: Pt was discharged home to [address] , [place] [address]; ([phone]). Pts brother, Hugo ([phone]), picked the pt up around 4pm. Upon discharge, the pt appeared to be in a dysphoric mood and presented with an anxious affect. Pt denied both suicidal and homicidal ideation as well as auditory and visual hallucinations. Pt will be under the care of her psychiatrist, Dr. Leos ([facility]), [place] at [address] [place] [address]; ; and a fax of records was sent to: [phone]. Pt has an appointment on 01/14/19 at 10AM. Pt will be under the care of his intermodal owner operator truck driver, Dr. Degroot, located at [address] [place] [address] [address], [place] [address]; . Addendum: 01/21/19 at 1420 by VAMSHI TOLLIVER Pts appointment will be on 01/23/19 at 2:30pm with Dr. Cosby.
--- NOTE | 2019-01-21 14:20 | NUR ---
UR Note: SHAREE called Lianet ([phone]), case worker with [facility], and left a discharge clinical on her voicemail.
--- NOTE | 2019-01-21 16:17 | NUR ---
RN NOTE- DISCHARGE NOTE- PTS BROTHER VONDA CARRANZA PICKED UP PT. HER VS STABLE- 109/71, HR 82, RR 18, T-97.5. ALERT ORIENTED X 3. PT DENIES SI HI AH VH AT TIME OF DC. VALUABLES RETURNED TO PT. ALL AFTER CARE PAPERWORK SIGNED AND PT VERBALIZED UNDERSTANDING. ID ARMBAND REMOVED. BROTHER VONDA CARRANZA REFUSED TO SIGN CONTINUATION OF CARE ADVISEMENT . SPOKE W SW AND INFORMED. THIS RN ESCORTED PT OFF UNIT AND OUT OF HOSPITAL ALONG W BROTHER.
== END 2019-01-21 16:15 | disposition home or self-care (01) | DRG 885 ==
LOC: ER 16:09 → GPS 20:30
PROVIDERS: ADMIT Psychiatry & Neurology Psychiatry; ATTEND Hospitalist
DX: F31.9 Bipolar disorder, unspecified (principal); N17.0 Acute kidney failure with tubular necrosis; G92 Toxic encephalopathy; B37.49 Other urogenital candidiasis; E87.0 Hyperosmolality and hypernatremia; E46 Unspecified protein-calorie malnutrition; F29 Unspecified psychosis not due to a substance or known physiological condition; F41.9 Anxiety disorder, unspecified; R62.7 Adult failure to thrive; Z91.19 Patient's noncompliance with other medical treatment and regimen; I10 Essential (primary) hypertension; E86.0 Dehydration; E83.52 Hypercalcemia; Z73.6 Limitation of activities due to disability
CPT/HCPCS: 36415; 80048-TC; 80053-TC; 80061-TC; 80076-TC; 80305; 81000-TC; 82962-TC; 83605-TC; 83735-TC; 84100-TC; 84443-TC; 84550-TC; 85025-TC; 87081-TC; 87086-TC; G0480; J7030; J7070